=== PATIENT | male | born 1970 | race Caucasian/White ===

== ENCOUNTER 2018-07-02 19:06 | Emergency (ER) | payer MEDICAID, OTHER ==
[~2018-07-02] VITALS: Ht 172.7 cm; Wt 75.0 kg
--- NOTE | 2018-07-02 20:17 | REP ---
Clinical: Chronic cough . Comparison: 08/20/2006. Technique: PA and lateral. Findings: The mediastinum and cardiac silhouette are normal. The lung castellon are clear and without acute consolidation, effusion, or pneumothorax. The skeletal structures are intact and normal. Impression: 1. No acute cardiopulmonary process. Electronically Signed by Keith Hernandez MD 07/02/2018 08:09 P
[2018-07-02] MEDS ORDERED: predniSONE 20 MG TAB PO ONE (21:15)
[2018-07-02] MEDS ORDERED: TUSSICAPS ER 10/8MG CAPSULE PO ONE (21:15)
[2018-07-02] MEDS ORDERED: IPRATROPIUM 0.5MG/ALBUTEROL 2.5MG INH SOL UD 3ML (DUONEB)(J7620) NEB ONE (21:15)
[2018-07-02] MEDS ORDERED: GUAISYP9 PO (21:59)
[2018-07-02] MEDS ORDERED: COMBAER6 INH (21:59)
[2018-07-02] MEDS ORDERED: PRED20TA PO (21:59)
[2018-07-02 22:17] VITALS: BP 121/77
== END 2018-07-02 22:18 | disposition home or self-care (01) ==
LOC: M ED 19:06
DX: J41.1 Mucopurulent chronic bronchitis (principal); R56.9 Unspecified convulsions; Z87.891 Personal history of nicotine dependence

== ENCOUNTER 2019-05-17 16:33 | Emergency (ER) | payer OTHER, SELFPAY ==
[~2019-05-17] VITALS: Ht 172.7 cm; Wt 81.8 kg
[~2019-05-17 16:33] MED LIST: COMBAER6 INH; GUAISYP9 PO; PRED20TA PO
--- NOTE | 2019-05-17 18:29 | REP ---
Chest x-ray: Two views. History: Chest pain. Comparison study: July 02, 2018. Findings: The lungs are symmetrically aerated and clear. Pleural angles are sharp. Heart size is normal. Pulmonary vasculature is not increased. No significant bony abnormalities seen. Impression: Negative chest x-ray. Electronically Signed by Grady Ring MD 05/17/2019 06:21 P
[2019-05-17 18:47] LABS: HEMATOCRIT 44.1 % (42.0-52.0); HEMOGLOBIN 14.1 g/dl (13.5-17.5); MEAN CORPUSCULAR HEMOGLOBIN 30.9 pg (27.0-33.0); MEAN CORPUSCULAR VOLUME 96.5 fl (80.0-96.0); PLATELET COUNT, AUTOMATED 314 10^3/uL (150-450); RED BLOOD COUNT 4.57 10^6/uL (4.30-6.10); WHITE BLOOD COUNT 9.8 10^3/uL (4.0-10.0)
[2019-05-17] MEDS ORDERED: KETOROLAC 30 MG/ML VIAL (J1885) IV ONE (19:00)
[2019-05-17 19:12] LABS: ALBUMIN 3.7 GM/DL (3.2-5.2); ALT/SGPT 19 U/L (12-78); BILIRUBIN,DIRECT < 0.1 MG/DL (0.0-0.2); BILIRUBIN,TOTAL 0.3 MG/DL (0.2-1.0); CPK CREATINE PHOSPHOKINASE 111 U/L (39-308); LIPASE 72 U/L (73-393); TROPONIN I < 0.02 NG/ML (< 0.10)
[2019-05-17] MEDS ORDERED: ISOVUE-370 76% 100ML VIAL (Q9967) As Ordered ONE (19:19)
--- NOTE | 2019-05-17 20:11 | REPVR ---
PROCEDURE INFORMATION: Exam: CT Angiography Chest With Contrast Exam date and time: 05/17/2019 7:23 PM Clinical history: 48 years old, male; Other: R/O pe TECHNIQUE: Imaging protocol: Computed tomographic angiography of the chest with intravenous contrast. 3D rendering: MIP reconstructed images were created and reviewed. Radiation optimization: All CT scans at this facility use at least one of these dose optimization techniques: automated exposure control; mA and/or kV adjustment per patient size (includes targeted exams where dose is matched to clinical indication); or iterative reconstruction. Contrast material: ISOVUE 370; Contrast volume: 75 ml; Contrast route: IV; COMPARISON: CR Chest, 2 view PA, Lat 05/17/2019 5:56 PM FINDINGS: Pulmonary arteries: The main pulmonary artery measures 25 mm. No pulmonary embolism is identified. Aorta: The ascending thoracic aorta measures 34 mm. Lungs: Minimal biapical bullous change and interstitial prominence. There is minimal lingular and right middle lobe atelectasis or scar. Pleural space: Unremarkable. No pneumothorax. No pleural effusion. Heart: Unremarkable. No cardiomegaly. No pericardial effusion. Mediastinum: Slight induration of anterior mediastinal fat which is nonspecific in patient of this age. Gallbladder and bile ducts: The gallbladder is contracted with no stones. Lymph nodes: Unremarkable. No enlarged lymph nodes. Bones/joints: Unremarkable. No acute fracture. Soft tissues: Unremarkable. IMPRESSION: Essentially negative CTA chest. No pulmonary embolism is identified. Electronically signed by: Bryce Rodgers On 05/17/2019 20:11:23 PM
[2019-05-17] MEDS ORDERED: CYCLOBENZAPRINE 10 MG TAB PO ONE (20:45)
[2019-05-17] MEDS ORDERED: CYCL10TA PO (22:01)
[2019-05-17 22:08] VITALS: BP 138/75
--- NOTE | 2019-05-17 23:28 | ECGEPIP ---
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
--- NOTE | 2019-05-18 01:32 | REP ---
Clinical: Trauma. Technique: Frontal view of the chest with multiple views of the left hemithorax. Findings: Frontal view of the chest demonstrates no acute cardiopulmonary process. Multiple views of the left hemithorax demonstrates no obvious acute rib fracture or pathology. Impression: Normal left rib series Electronically Signed by Keith Hernandez MD 05/18/2019 01:24 A
== END 2019-05-17 22:10 | disposition home or self-care (01) ==
LOC: M ED 16:33
DX: S29.011A Strain of muscle and tendon of front wall of thorax, initial encounter (principal); S29.012A Strain of muscle and tendon of back wall of thorax, initial encounter; X58.XXXA Exposure to other specified factors, initial encounter; Y92.9 Unspecified place or not applicable; Y93.9 Activity, unspecified; Y99.9 Unspecified external cause status; I45.10 Unspecified right bundle-branch block; R07.89 Other chest pain; Z87.891 Personal history of nicotine dependence
CPT/HCPCS: 71046; 71100; 71275; 80047; 80076; 81001; 82550; 82553; 83690; 84484; 85027; 85379; 93005; 96374; 99284; J1885; Q9967

== ENCOUNTER → 2019-11-17 | Outpatient (CLI) | payer OTHER ==
[~2019-11-17] MED LIST changes: +CYCL-707 PO
--- NOTE | 2019-11-18 01:38 | REPPI ---
Clinical: Shortness of breath Comparison: 05/17/2019 . Technique: PA and lateral. Findings: The mediastinum and cardiac silhouette are normal. The lung castellon are clear and without acute consolidation, effusion, or pneumothorax. The skeletal structures are intact and normal. Impression: 1. No acute cardiopulmonary process. Electronically Signed by Keith Hernandez MD 11/18/2019 01:30 A
--- NOTE | 2019-11-18 02:08 | REPPI ---
Clinical: Arthralgia . Technique: Internal rotation, external rotation, and Y view right shoulder . Findings: No acute fracture or dislocation. The acromioclavicular and glenohumeral joints are intact. No periarticular calcifications or degenerative changes are appreciated. Sub acromial space is normal. Surrounding soft tissues are unremarkable. Impression: Normal right shoulder radiographs. Electronically Signed by Keith Hernandez MD 11/18/2019 02:00 A
== END ==
LOC: M PLAIMG 15:40
PROVIDERS: ATTEND Physician Assistant Medical
DX: R06.02 Shortness of breath (principal); M25.511 Pain in right shoulder

== ENCOUNTER → 2019-11-17 | Outpatient (REF) | payer OTHER ==
[2019-11-17 17:43] LABS: BASO # 0.1 10^3/uL (0.0-0.2); BASO % 0.9 % (0.0-1.0); EOS # 0.2 10^3/uL (0.0-0.5); EOS % 1.9 % (0.0-3.0); HEMATOCRIT 44.2 % (42.0-52.0); HEMOGLOBIN 14.8 g/dl (13.5-17.5); LYMPH # 2.4 10^3/uL (1.5-5.0); MEAN CORPUSCULAR HEMOGLOBIN 31.2 pg (27.0-33.0); MEAN CORPUSCULAR HGB CONC 33.5 g/dl (32.0-36.5); MEAN CORPUSCULAR VOLUME 93.1 fl (80.0-96.0); MONO # 0.9 10^3/uL (0.0-0.8); MONO % 10.6 % (0.0-5.0); NEUTROPHILS # 5.2 10^3/uL (1.5-8.5); NEUTROPHILS % 58.9 % (36.0-66.0); PLATELET COUNT, AUTOMATED 272 10^3/uL (150-450); RED BLOOD COUNT 4.75 10^6/uL (4.30-6.10); WHITE BLOOD COUNT 8.8 10^3/uL (4.0-10.0)
[2019-11-17 18:14] LABS: FREE T4 1.13 NG/DL (0.76-1.46); THYROID STIMULATING HORMONE 1.59 uIU/ML (0.358-3.740)
== END ==
LOC: M SFHCPLAZ 15:38
PROVIDERS: ATTEND Physician Assistant Medical
DX: R06.02 Shortness of breath (principal)

== ENCOUNTER → 2020-02-10 | Outpatient (CLI) | payer OTHER ==
--- NOTE | 2020-03-27 11:48 | REP ---
ULTRASOUND OF ANTERIOR ABDOMINAL WALL: HISTORY: Bulging, question hernia. FINDINGS: Real time sonographic evaluation of the anterior abdominal wall performed at the site of 3 palpable lumps in the midline of the abdomen. The first is just below the xiphoid process. The anterior abdominal wall appears intact with no underlying sonographic abnormality. In the midline of the upper abdomen, a second palpable lump demonstrates a superficial round hyperechoic area in a subcutaneous area. This most likely represents a lipoma. This measures 1.6 x 0.9 x 1.5 cm. At the third palpable lump more inferiorly just above the umbilicus, there is similarly a hyperechoic rounded oval area in the subcutaneous soft tissues measuring 1.1 x 0.9 x 1.1 cm, probably representing a lipoma. Clinical correlation and follow up recommended to ensure stability. MTDD
== END ==
LOC: M RAD 03:19
PROVIDERS: ATTEND Physician Assistant
DX: R19.7 Diarrhea, unspecified (principal); D17.1 Benign lipomatous neoplasm of skin and subcutaneous tissue of trunk

== ENCOUNTER → 2021-12-20 | Outpatient (CLI) | payer OTHER ==
[2021-12-20 13:18] LABS: BASO # 0.1 10^3/uL (0.0-0.2); EOS # 0.4 10^3/uL (0.0-0.5); EOS % 5.6 % (0.0-3.0); HEMATOCRIT 45.8 % (42.0-52.0); HEMOGLOBIN 14.6 g/dl (13.5-17.5); LYMPH % 27.7 % (24.0-44.0); MEAN CORPUSCULAR HEMOGLOBIN 30.5 pg (27.0-33.0); MEAN CORPUSCULAR HGB CONC 31.9 g/dl (32.0-36.5); MEAN CORPUSCULAR VOLUME 95.8 fl (80.0-96.0); MONO # 0.7 10^3/uL (0.0-0.8); MONO % 9.7 % (2.0-8.0); NEUTROPHILS % 55.5 % (36.0-66.0); PLATELET COUNT, AUTOMATED 264 10^3/uL (150-450); RED BLOOD COUNT 4.78 10^6/uL (4.30-6.10); WHITE BLOOD COUNT 7.3 10^3/uL (4.0-10.0)
[2021-12-20 13:38] LABS: HEMOGLOBIN A1c 5.4 %
[2021-12-20 13:49] LABS: ALBUMIN 3.9 GM/DL (3.2-5.2); ALT/SGPT 36 U/L (12-78); BILIRUBIN,TOTAL 0.6 MG/DL (0.2-1.0); BLOOD UREA NITROGEN 13 MG/DL (7-18); CALCIUM LEVEL 9.6 MG/DL (8.5-10.1); CARBON DIOXIDE LEVEL 28 MEQ/L (21-32); CHLORIDE LEVEL 106 MEQ/L (98-107); CHOLESTEROL LEVEL 201 MG/DL (<200); CHOLESTEROL RISK RATIO 3.722 (<5); CREATININE FOR GFR 0.92 MG/DL (0.70-1.30); GLOMERULAR FILTRATION RATE > 60.0 (>56); GLUCOSE, FASTING 87 MG/DL (70-100); HDL CHOLESTEROL 54 MG/DL (>40); LDL CHOLESTEROL 133 MG/DL (<100); NON-HDL-C 147 MG/DL; SODIUM LEVEL 140 MEQ/L (136-145); TOTAL PROTEIN 7.3 GM/DL (6.4-8.2); TRIGLYCERIDES LEVEL 70 MG/DL (<150)
== END ==
LOC: M PLALAB 09:57
PROVIDERS: ATTEND Nurse Practitioner Family
DX: Z13.228 Encounter for screening for other metabolic disorders (principal); Z12.5 Encounter for screening for malignant neoplasm of prostate; Z13.220 Encounter for screening for lipoid disorders

== ENCOUNTER → 2022-02-12 | Outpatient (CLI) | payer OTHER | LOC: M PLALAB 15:53 | PROVIDERS: ATTEND Nurse Practitioner Family | DX: R06.00 Dyspnea, unspecified (principal); J84.10 Pulmonary fibrosis, unspecified ==

== ENCOUNTER → 2022-03-25 | Outpatient (CLI) | payer OTHER | LOC: M CARPUL 15:06 | PROVIDERS: ATTEND Internal Medicine Pulmonary Disease | DX: J44.9 Chronic obstructive pulmonary disease, unspecified (principal) ==

== ENCOUNTER → 2022-04-03 | Outpatient (CLI) | payer OTHER | LOC: M RAD 16:53 | PROVIDERS: ATTEND Internal Medicine Pulmonary Disease | DX: Z12.2 Encounter for screening for malignant neoplasm of respiratory organs (principal); Z87.891 Personal history of nicotine dependence; R91.1 Solitary pulmonary nodule; J43.9 Emphysema, unspecified ==

== ENCOUNTER → 2022-11-21 | Outpatient (CLI) | payer OTHER ==
[2022-11-21 14:19] LABS: BASO # 0.1 10^3/uL (0.0-0.2); BASO % 0.9 % (0.0-1.0); EOS # 0.2 10^3/uL (0.0-0.5); EOS % 2.1 % (0.0-3.0); HEMATOCRIT 44.9 % (42.0-52.0); HEMOGLOBIN 14.5 g/dl (13.5-17.5); LYMPH # 2.4 10^3/uL (1.5-5.0); MEAN CORPUSCULAR HEMOGLOBIN 30.6 pg (27.0-33.0); MEAN CORPUSCULAR HGB CONC 32.3 g/dl (32.0-36.5); MEAN CORPUSCULAR VOLUME 94.7 fl (80.0-96.0); MONO % 10.4 % (2.0-8.0); NEUTROPHILS # 5.6 10^3/uL (1.5-8.5); NEUTROPHILS % 60.3 % (36.0-66.0); PLATELET COUNT, AUTOMATED 303 10^3/uL (150-450); RED BLOOD COUNT 4.74 10^6/uL (4.30-6.10); WHITE BLOOD COUNT 9.3 10^3/uL (4.0-10.0)
[2022-11-21 14:41] LABS: ALBUMIN 4.1 G/DL (3.2-5.2); ALKALINE PHOSPHATASE 79 U/L (46-116); ALT/SGPT 33 U/L (7.0-40); AST/SGOT 29 U/L (<34); BILIRUBIN,TOTAL 0.6 MG/DL (0.3-1.2); BLOOD UREA NITROGEN 18 MG/DL (9-23); CALCIUM LEVEL 9.6 MG/DL (8.5-10.1); CARBON DIOXIDE LEVEL 30 MMOL/L (20-31); CHLORIDE LEVEL 103 MMOL/L (98-107); CHOLESTEROL LEVEL 208 MG/DL (<200); CHOLESTEROL RISK RATIO 3.87 (<5); GLOMERULAR FILTRATION RATE > 60.0 (>56); GLUCOSE, FASTING 46 MG/DL (60-100); HDL CHOLESTEROL 53.7 MG/DL (>40); LDL CHOLESTEROL 133.3 MG/DL (<100); NON-HDL-C 154.3 MG/DL; POTASSIUM SERUM 4.6 MMOL/L (3.5-5.1); SODIUM LEVEL 138 MMOL/L (136-145); TRIGLYCERIDES LEVEL 105 MG/DL (<150)
== END ==
LOC: M PLALAB 11:53
PROVIDERS: ATTEND Nurse Practitioner Family
DX: E78.5 Hyperlipidemia, unspecified (principal); M54.2 Cervicalgia

== ENCOUNTER 2023-02-13 07:23 | Emergency (ER) | payer OTHER ==
[~2023-02-13] VITALS: Ht 172.7 cm; Wt 90.7 kg
[2023-02-13] MEDS ORDERED: OMEP40CA5 (07:31)
[2023-02-13] MEDS ORDERED: TREL1AER (07:31)
[2023-02-13] MEDS ORDERED: ERYT5OIN25 OD (08:28)
[2023-02-13 09:07] VITALS: BP 145/88; TEMP 97.4; O2SAT 96
== END 2023-02-13 09:18 | disposition home or self-care (01) ==
LOC: M ED 07:23
DX: H00.012 Hordeolum externum right lower eyelid (principal); K21.9 Gastro-esophageal reflux disease without esophagitis; J44.9 Chronic obstructive pulmonary disease, unspecified

== ENCOUNTER 2023-02-27 13:31 | Emergency (ER) | payer OTHER ==
[~2023-02-27] VITALS: Ht 175.3 cm; Wt 91.8 kg
[~2023-02-27 13:31] MED LIST changes: +ERYT5OIN25 OD; +OMEP40CA5; +TREL1AER
[2023-02-27] MEDS ORDERED: LIDOCAINE 5% (LIDODERM) PATCH TD ONE (18:10)
[2023-02-27] MEDS ORDERED: KETOROLAC 60MG 2ML VIAL IM ONE (18:10)
[2023-02-27] MEDS ORDERED: predniSONE 20 MG TAB PO ONE (18:10)
[2023-02-27] MEDS ORDERED: methocarbamoL 750 MG TAB PO ONE (19:40)
[2023-02-27] MEDS ORDERED: METH-1165 PO (19:41)
[2023-02-27] MEDS ORDERED: ASPE4PAD TOP (19:41)
[2023-02-27] MEDS ORDERED: NAPR-837 PO (19:41)
[2023-02-27] MEDS ORDERED: MEDR4PAK PO (19:41)
[2023-02-27 19:49] VITALS: BP 152/86; TEMP 97.5; O2SAT 98
== END 2023-02-27 19:52 | disposition home or self-care (01) ==
LOC: M ED 13:31
DX: M54.50 Low back pain, unspecified (principal); J44.9 Chronic obstructive pulmonary disease, unspecified; K21.9 Gastro-esophageal reflux disease without esophagitis; F17.200 Nicotine dependence, unspecified, uncomplicated; Z79.899 Other long term (current) drug therapy
CPT/HCPCS: 72110; 73502; 96372; 99283; J1885; J7512

== ENCOUNTER 2023-03-11 14:52 | Emergency (ER) | payer OTHER ==
[~2023-03-11] VITALS: Ht 172.7 cm; Wt 91.8 kg
[~2023-03-11 14:52] MED LIST changes: +ASPE4PAD TOP; +MEDR4PAK PO; +METH-1165 PO; +NAPR-837 PO
[2023-03-11 14:53] VITALS: BP 125/80; TEMP 97.3; O2SAT 97
== END 2023-03-11 18:41 | disposition left against medical advice (07) ==
LOC: M ED 14:52
DX: Z53.21 Procedure and treatment not carried out due to patient leaving prior to being seen by health care provider (principal)

== ENCOUNTER → 2023-04-29 | Outpatient (CLI) | payer OTHER | LOC: M RAD 15:47 | PROVIDERS: ATTEND Internal Medicine Pulmonary Disease | DX: Z12.2 Encounter for screening for malignant neoplasm of respiratory organs (principal); Z87.891 Personal history of nicotine dependence; R91.1 Solitary pulmonary nodule; J98.11 Atelectasis; J43.2 Centrilobular emphysema ==

== ENCOUNTER → 2023-10-13 | Outpatient (CLI) | payer OTHER | LOC: M WUC 13:55 | PROVIDERS: ATTEND Nurse Practitioner Family | DX: J44.1 Chronic obstructive pulmonary disease with (acute) exacerbation (principal) ==

== ENCOUNTER → 2024-05-03 | Outpatient (CLI) | payer OTHER | LOC: M RAD 09:51 | PROVIDERS: ATTEND Internal Medicine Pulmonary Disease | DX: J43.9 Emphysema, unspecified (principal); J44.9 Chronic obstructive pulmonary disease, unspecified ==

== ENCOUNTER → 2024-08-09 | Outpatient (CLI) | payer OTHER | LOC: M SOG 08:01 | PROVIDERS: ATTEND Physician Assistant | DX: M79.642 Pain in left hand (principal); Z53.9 Procedure and treatment not carried out, unspecified reason ==

== ENCOUNTER 2024-09-16 07:50 | Day surgery (SDC) | payer OTHER ==
[~2024-09-16] VITALS: Ht 172.7 cm; Wt 97.0 kg
[~2024-09-16 07:50] MED LIST changes: +ALBU2.5V10; +ALBU8.5H; +FLUT1BLS8; -OMEP40CA5; +OMEP40CA5 PO
[2024-09-16] MEDS: LIDOCAINE W/EPINEPHRINE 1% 20ML VIAL XX ONE (09:30)
[2024-09-16] MEDS: SODIUM BICARBONATE 8.4% INJ 50MEQ 50ML VIAL XX ONE (09:30)
[2024-09-16] MEDS: BACITRACIN OINTMENT 30GM TUBE As Ordered ONE (10:42)
[2024-09-16 10:54] VITALS: BP 156/89; TEMP 97.5; O2SAT 95
== END 2024-09-16 11:00 | disposition home or self-care (01) ==
LOC: M SDC 07:50
PROVIDERS: ATTEND Orthopaedic Surgery Hand Surgery
DX: M65.332 Trigger finger, left middle finger (principal); M65.342 Trigger finger, left ring finger; K21.9 Gastro-esophageal reflux disease without esophagitis; J44.9 Chronic obstructive pulmonary disease, unspecified; Z79.51 Long term (current) use of inhaled steroids; Z79.899 Other long term (current) drug therapy

== ENCOUNTER 2025-01-04 22:54 | Emergency (ER) | payer MEDICAID, OTHER ==
[~2025-01-04] VITALS: Ht 172.7 cm; Wt 102.9 kg
[2025-01-04 22:58] VITALS: TEMP 97.8
[2025-01-05 01:15] LABS: BASO # 0.1 10^3/uL (0.0-0.2); BASO % 1.4 % (0.0-1.0); EOS # 0.4 10^3/uL (0.0-0.5); EOS % 3.8 % (0.0-3.0); LYMPH # 2.7 10^3/uL (1.5-5.0); LYMPH % 26.8 % (24.0-44.0); MONO # 1.2 10^3/uL (0.0-0.8); MONO % 11.7 % (2.0-8.0); NEUTROPHILS # 5.6 10^3/uL (1.5-8.5); NEUTROPHILS % 55.2 % (36.0-66.0); PLATELET COUNT, AUTOMATED 289 10^3/uL (150-450)
[2025-01-05] MEDS: IPRATROPIUM 0.5 MG/ALBUTEROL 2.5 MG INH SOL UD 3 ML NEB SCH (01:50)
[2025-01-05 01:51] LABS: CALCIUM LEVEL 9.2 MG/DL (8.5-10.1); CARBON DIOXIDE LEVEL 27 MMOL/L (20-31); CHLORIDE LEVEL 103 MMOL/L (98-107); CK-MB VALUE MASS 2.2 NG/ML (<3.6); CREATININE FOR GFR 0.88 MG/DL (0.70-1.30); GLOMERULAR FILTRATION RATE > 90.0 (>56); POTASSIUM SERUM 4.6 MMOL/L (3.5-5.1); SODIUM LEVEL 139 MMOL/L (136-145)
[2025-01-05 01:53] LABS: CPK CREATINE PHOSPHOKINASE 292 U/L (46-171); MB/CK RELATIVE INDEX 0.75 (< OR =4)
[2025-01-05 02:45] LABS: CK-MB VALUE MASS 2.2 NG/ML (<3.6)
[2025-01-05 02:46] LABS: CPK CREATINE PHOSPHOKINASE 285.0 U/L (46-171); MB/CK RELATIVE INDEX 0.77 (< OR =4)
[2025-01-05 03:30] VITALS: BP 142/82
[2025-01-05] MEDS ORDERED: IPRA0.00 INH (03:42)
[2025-01-05] MEDS ORDERED: MELO10CA2 PO (03:42)
[2025-01-05 03:45] VITALS: O2SAT 92
[2025-01-05] MEDS ORDERED: MUCI600T31 PO (04:17)
== END 2025-01-05 04:19 | disposition home or self-care (01) ==
LOC: M ED 22:54
DX: R07.89 Other chest pain (principal); R05.9 Cough, unspecified; J44.9 Chronic obstructive pulmonary disease, unspecified; J43.9 Emphysema, unspecified; Z79.899 Other long term (current) drug therapy
CPT/HCPCS: 36415; 71046; 80048; 82550; 82553; 83880; 84484; 85025; 87486; 87581; 87633; 87798; 93005; 94640; 96374; 99284; J2919

== ENCOUNTER → 2025-02-09 | Outpatient (CLI) | payer OTHER ==
[~2025-02-09] MED LIST changes: +IPRA0.00 INH; +MELO10CA2 PO; +MUCI600T31 PO
== END ==
LOC: M CARPUL 08:53
PROVIDERS: ATTEND Nurse Practitioner Family
DX: R06.00 Dyspnea, unspecified (principal); I08.0 Rheumatic disorders of both mitral and aortic valves

== ENCOUNTER 2025-02-15 20:21 | Emergency (ER) | payer OTHER ==
[~2025-02-15] VITALS: Ht 172.7 cm; Wt 104.1 kg
[2025-02-15 20:24] VITALS: TEMP 97.1
[2025-02-15] MEDS: IPRATROPIUM 0.5 MG/ALBUTEROL 2.5 MG INH SOL UD 3 ML NEB PRN (20:49)
[2025-02-15 21:13] LABS: ABG BASE EXCESS -0.1 (-2.0-2.0); ABG HCO3 24.5 MMOL/L (22.0-26.0); ABG O2 SATURATION 97.6 % (95.0-99.0); ABG PARTIAL PRESSURE CO2 40.1 mmHg (35.0-45.0); ABG PARTIAL PRESSURE O2 96.5 mmHg (75.0-100.0); ABG STANDARD HCO3 24.4 MMOL/L. (22.0-26.0); ABG TOTAL CO2 25.7 MMOL/L (22.0-29.0); ABG pH (ARTERIAL) 7.404 UNITS (7.350-7.450)
[2025-02-15 21:14] LABS: BASO # 0.2 10^3/uL (0.0-0.2); BASO % 1.3 % (0.0-1.0); EOS # 0.6 10^3/uL (0.0-0.5); EOS % 5.3 % (0.0-3.0); LYMPH # 2.7 10^3/uL (1.5-5.0); LYMPH % 24.2 % (24.0-44.0); MONO # 0.9 10^3/uL (0.0-0.8); MONO % 8.1 % (2.0-8.0); NEUTROPHILS # 6.9 10^3/uL (1.5-8.5); NEUTROPHILS % 60.4 % (36.0-66.0); PLATELET COUNT, AUTOMATED 285 10^3/uL (150-450)
[2025-02-15 21:44] LABS: ALT/SGPT 36 U/L (7.0-40); AST/SGOT 31 U/L (<34); CALCIUM LEVEL 9.2 MG/DL (8.5-10.1); CARBON DIOXIDE LEVEL 25 MMOL/L (20-31); CHLORIDE LEVEL 105 MMOL/L (98-107); CREATININE FOR GFR 0.87 MG/DL (0.70-1.30); GLOMERULAR FILTRATION RATE > 90.0 (>56); POTASSIUM SERUM 4.4 MMOL/L (3.5-5.1); SODIUM LEVEL 141 MMOL/L (136-145)
[2025-02-15 21:45] LABS: CK-MB VALUE MASS 1.6 NG/ML (<3.6)
[2025-02-15 21:57] LABS: CPK CREATINE PHOSPHOKINASE 154 U/L (46-171); MB/CK RELATIVE INDEX 1.03 (< OR =4)
[2025-02-16] MEDS: IPRATROPIUM 0.5 MG/ALBUTEROL 2.5 MG INH SOL UD 3 ML NEB ONE (01:20)
[2025-02-16] MEDS: dexAMETHasone 4 MG/ML 1 ML VIAL PO ONE (01:25)
[2025-02-16 02:00] VITALS: BP 140/84; O2SAT 97
[2025-02-16] MEDS ORDERED: ALBU8.5H PO (02:08)
[2025-02-16] MEDS ORDERED: IPRA0.00 INH (02:08)
[2025-02-16] MEDS ORDERED: MUCI600T31 PO (02:08)
[2025-02-16] MEDS ORDERED: AZIT500T5 PO (02:28)
== END 2025-02-16 02:30 | disposition home or self-care (01) ==
LOC: M ED 20:21
DX: J44.1 Chronic obstructive pulmonary disease with (acute) exacerbation (principal); K21.9 Gastro-esophageal reflux disease without esophagitis; Z79.899 Other long term (current) drug therapy
CPT/HCPCS: 36600; 71046; 80048; 80076; 82550; 82553; 82803; 83880; 84443; 84484; 85025; 93005; 93041; 94760; 99285; J1100

== ENCOUNTER → 2025-05-15 | Outpatient (CLI) | payer OTHER ==
[~2025-05-15] MED LIST changes: +ALBU8.5H PO; +AZIT500T5 PO
[2025-05-15 18:48] LABS: BASO # 0.1 10^3/uL (0.0-0.2); BASO % 1.1 % (0.0-1.0); EOS # 0.2 10^3/uL (0.0-0.5); EOS % 1.9 % (0.0-3.0); LYMPH # 2.4 10^3/uL (1.5-5.0); LYMPH % 24.5 % (24.0-44.0); MONO # 0.9 10^3/uL (0.0-0.8); MONO % 9.2 % (2.0-8.0); NEUTROPHILS # 6.0 10^3/uL (1.5-8.5); NEUTROPHILS % 62.8 % (36.0-66.0); PLATELET COUNT, AUTOMATED 327 10^3/uL (150-450)
[2025-05-15 18:53] LABS: ALT/SGPT 27.0 U/L (7.0-40); AST/SGOT 28.0 U/L (<34); CALCIUM LEVEL 9.2 MG/DL (8.5-10.1); CARBON DIOXIDE LEVEL 29.0 MMOL/L (20-31); CHLORIDE LEVEL 104.0 MMOL/L (98-107); CHOLESTEROL LEVEL 173.0 MG/DL (<200); CHOLESTEROL RISK RATIO 4.4 (<5); CREATININE FOR GFR 0.99 MG/DL (0.70-1.30); GLOMERULAR FILTRATION RATE 89.4 (>56); LDL CHOLESTEROL 106.7 MG/DL (<100); NON-HDL-C 133.7 MG/DL; POTASSIUM SERUM 4.6 MMOL/L (3.5-5.1); SODIUM LEVEL 142.0 MMOL/L (136-145); TRIGLYCERIDES LEVEL 135.0 MG/DL (<150)
== END ==
LOC: M PLALAB 14:46
PROVIDERS: ATTEND Nurse Practitioner Family
DX: Z00.00 Encounter for general adult medical examination without abnormal findings (principal); E55.9 Vitamin D deficiency, unspecified; E78.5 Hyperlipidemia, unspecified

== ENCOUNTER → 2025-05-24 | Outpatient (CLI) | payer OTHER | LOC: M RAD 15:32 | PROVIDERS: ATTEND Physician Assistant | DX: Z87.891 Personal history of nicotine dependence (principal) ==